=== PATIENT | male | born 1955 | race Caucasian/White ===

== ENCOUNTER 2022-06-17 21:24 | Emergency (ER) | payer MEDICARE, BC, SELFPAY ==
[2022-06-17 21:34] VITALS: BP 139/93; PULSE 70; RESP 18; TEMP 36.9; O2SAT 97; BMI 29.0
--- NOTE | 2022-06-17 22:05 | ED.GENADULT ---
HPI - General Adult General Chief complaint: Allergic Reaction Stated complaint: Bee stings, swelling Time Seen by Provider: 06/17/22 21:29 History of Present Illness HPI narrative: Pt is a 67 year old gentleman who was stung by 8 bees approximately 4 hours ago. Pt was mowing his lawn when he was attacked by a swarm of bees. Pt has no history of true beesting allery but does have a history of local swelling at the site of sting. Today he was stung on the back, abd, bilateral upper and lower extremities. He has swelling at the sites but no bleeding. No SOB no mucus membrane involvement. No chest pain or SOB. No diaphoresis. Pt took a bath prior to coming in and all remaining stingers were removed. Swelling has been stable for the last several hours. Pt feels well but is concerned about the sting sites. He is up to date on his vaccinations. Related Data Home Medications Medication Instructions Recorded Confirmed rosuvastatin 5 mg tablet mg 06/17/22 Allergies Allergy/AdvReac Type Severity Reaction Status Date / Time No Known Drug Allergies Allergy Verified 06/17/22 21:41 Review of Systems Status of ROS: Reports: 10 or more systems reviewed and unremarkable except as noted in History and below PFSH PFS Social History Smoking Status: Never smoker Do you use any of these nicotine containing products: None Second hand tobacco smoke exposure: No How often do you have a drink containing alcohol: 2-4 times a month AUDIT-C Alcohol total score: 2 Non-prescribed substance use: denies use Exam Narrative: Exam Narrative: EXAM GENERAL: Patient appears comfortable and well. No swelling of the mucus membranes and no difficulty breathing. EYES: No scleral icterus. ENT: Tympanic membranes and oropharynx normal. THYROID: no thyroid nodules or thyromegaly. LYMPH: No supraclavicular or cervical lymphadenopathy. SKIN: Sting sites as mentioned above on the thorax and extremities show fairly uniform swelling around the approximately 8 sting sites with each having approximately 5-6 cm of induration. No signs of secondary infection. EXT: No dependent lower extremity pedal edema. HEART: Regular rate and rhythm with no murmurs, rubs, or gallops. LUNGS: Clear to auscultation bilaterally with no crackles or wheezes. ABD: Soft, non tender, non distended. PSYCH: Good eye contact, speech is not pressured. Neuro: CN 2-12 intact no focal defects Const: Vital Signs, click to edit/add: Vital Signs - 24 hr 06/17/22 21:34 Temperature 98.4 F Pulse Rate [Left P ulse Oximeter] 70 Respiratory Rate 18 Blood Pressure [Ri ght Upper Arm] 139/93 H Pulse Oximetry 97 Oxygen Delivery Me thod Room Air Course Course Hospital Course: Pt seen and examined. No signs of systemic swelling or anaphalaxis. Sting sites were circled with marker. Tetanus shot verified. 40 mg of Solu-Medrol given. Reevaluation(s) Reevaluation #1: Pt still doing well. Time: 22:17 Vital Signs Vital signs: Initial Vital Signs Temperature 98.4 F 06/17/22 21:34 Temperature Source Temporal Artery Scan 06/17/22 21:34 Pulse Rate 70 06/17/22 21:34 Respiratory Rate 18 06/17/22 21:34 Blood Pressure 139/93 H 06/17/22 21:34 Blood Pressure Mean 108 06/17/22 21:34 Blood Pressure Position Supine 06/17/22 21:34 Pulse Oximetry 97 06/17/22 21:34 Oxygen Delivery Method 06/17/22 21:34 Vital Signs Temperature 98.4 F 06/17/22 21:34 Pulse Rate 70 06/17/22 21:34 Respiratory Rate 18 06/17/22 21:34 Blood Pressure 139/93 H 06/17/22 21:34 Pulse Oximetry 97 06/17/22 21:34 Oxygen Delivery Method 06/17/22 21:34 Temperature 98.4 F 06/17/22 21:34 Pulse Rate 70 06/17/22 21:34 Respiratory Rate 18 06/17/22 21:34 Blood Pressure 139/93 H 06/17/22 21:34 Pulse Oximetry 97 06/17/22 21:34 Oxygen Delivery Method 06/17/22 21:34 Medical Decision Making MDM Narrative Medical decision making narrative: Pt has exagerated local response with no signs of anaphalaxis. We did treat him with Solu Medrol and observed. Vital signs stable. Pt treated with outpt Prednisone for the next 5 days. Differential Diagnosis Differential Diagnosis: Anaphalaxis, Local Reaction, Cellulitis, Allergic Reaction, Burn Discharge Plan Discharge Clinical Impression: Accidental bee sting Patient Disposition: Home, Self-Care Condition: Stable Instructions: Insect Bite or Sting (ED) Additional Instructions: Prednisone for 5 days as directed Benadryl as directed Local sting care Follow up with your doctor as needed Contact General Surgery to ensure they do not need to delay hemorrhoid surgery Activity Level: Activity as Tolerated Discharge Diet: Regular Prescriptions: No Action rosuvastatin 5 mg tablet Label Comments: TAKE ONE-HALF TABLET BY MOUTH EVERY OTHER DAY Follow Up/Referrals: Rocky Ibanez MD [Primary Care Provider] - Stand Alone Forms: [facility] Info Instructions
[2022-06-17] MEDS: METHYLPREDNISOLONE SOD SUCC 40 MG/ML IM (22:30)
[2022-06-17 23:33] LABS: SARS PCR* Negative SARS-CoV-2 (Negative)
== END 2022-06-17 22:40 | disposition home or self-care (01) ==
PROVIDERS: Emergency Provider Internal Medicine; PCP Surgery
DX: T63.441A Toxic effect of venom of bees, accidental (unintentional), initial encounter (principal); Y92.017 Garden or yard in single-family (private) house as the place of occurrence of the external cause
CPT/HCPCS: 87635; 96372; 99283; 99284; J2920

== ENCOUNTER 2022-08-20 06:07 | Day surgery (SDC) | payer MEDICARE, BC, SELFPAY ==
[2022-08-20] VITALS (10 sets, daily range): BP systolic 114–138; BP diastolic 76–98; PULSE 55–85; RESP 12–16; TEMP 36.2–36.7; O2SAT 94–97; BMI 29.7
[2022-08-20] MEDS: LACTATED RINGERS 1000 ML 1,000 ML 100 ML IV ×2 (06:30→08:22)
[2022-08-20] MEDS: CEFAZOLIN 2 GM INJ IVP (07:35)
[2022-08-20] MEDS: BUPIVACAINE 0.5% 30 ML 10 ML INJECTION (07:54)
[2022-08-20] MEDS: BUPIVACAINE LIPOSOME 133 MG/10 ML INJ INFILTRATI (07:54)
--- NOTE | 2022-08-20 08:44 | PM.GSPRC ---
Operative Note Date of procedure: 08/20/22 Type of Procedure: 1. Hemorrhoidectomy , 2 quadrant 2. Excision of perianal skin tag Procedure Description: The patient was brought to the Operating Room and a formal timeout for patient safety was performed in accordance with hospital protocol, thereby correctly matching this patient with their diagnosis and intended procedure. They were placed in the supine position, general anesthesia was administered, and the patient was intubated by Anesthesia without difficulty. The patient was then transferred to the Operating Room table, placed in the prone jackknife position with appropriate bumps and padding. Care was taken to ensure the genitalia and breasts were properly positioned on the hip and chest rolls, respectively. The shoulders and arms were positioned with care to protect the brachial plexus. The buttocks were taped laterally. A sterile prep and drape was done in the usual fashion. External examination, digital rectal examination, and anoscopic examination were all done and revealed significantly redundant internal hemorrhoidal tissue in the right lateral and left lateral aspects of the anal canal with associated residual hemorrhoidal skin tags. A large skin tag was also present posterior midline. Based on this assessment, plans were made for a 2-quadrant closed hemorrhoidectomy, as well as removal of the posterior midline skin tag. Attention was initially directed to the largest area of involvement and then went to the progressively smaller areas and all were handled in the same fashion. An elliptical incision was made with a needle tip electrocautery from the anoderm up into the anal canal just above the dentate line. Careful dissection of the hemorrhoid complex was done in the plane between the internal anal sphincter and the submucosal vascular plexus up to just above the dentate line in each quadrant described above. Having established the proper plane, the hemorrhoidal tissue was then excised with the Ligasure device and sent to Pathology for analysis. Care was taken to preserve mucosa for a tension-free closure. The internal sphincter fibers were visualized at the base of the wound and were intact. The wound was closed in a running locked manner starting at the apex (proximal aspect of elliptical excision) with 4-0 chromic suture, coming out to the anoderm and then running back up in a simple fashion and tying down at the apex. Hemostasis was excellent. The patient tolerated procedure well. There were no apparent complications. Instrument, sponge, and needle counts were correct at the end of the case. ? Sterile dressings were then applied. ? The patient was then woken and transported to the recovery area in stable condition. ? The patient tolerated the procedure well. Findings: Redundant internal hemorrhoidal tissue and large perianal skin tag. Anesthesia: GETA Surgeon: Daylin Davey MD Estimated blood loss (mL): 10 Condition: stable Disposition: PACU
--- NOTE | 2022-08-20 08:47 | W.ANESCHARGE ---
Anesthesia Charges Start Date/Time Anesthesia Start Date: 08/20/22 Anesthesia Start Time: 07:28 Stop Date/Time Anesthesia Stop Date: 08/20/22 Anesthesia Stop Time: 08:45 Summary Emergency: No
== END 2022-08-20 10:06 | disposition home or self-care (01) ==
PROVIDERS: PCP Surgery; Visit Provider Surgery
PROC: (CPT 46260; principal; 2022-08-20 07:30)
DX: K64.8 Other hemorrhoids (principal); K64.4 Residual hemorrhoidal skin tags
CPT/HCPCS: 46260; 00902; 88304; C9290; J0330; J0690; J2250; J2405; J2704; J3010; J3490; J7120

== ENCOUNTER 2024-03-26 07:39 | Emergency (ER) | payer MEDICARE, BC, SELFPAY ==
[2024-03-26 07:51] VITALS: BP 132/80; PULSE 63; RESP 18; TEMP 36.4; O2SAT 97; BMI 28.2
--- NOTE | 2024-03-26 08:11 | ED_ITS ---
HPI - Extremity Injury (Lower) General Time Seen by Provider: 08:11 Date Seen: 03/26/24 Chief Complaint: Extremity Pain/Injury, Lower Stated Complaint: RT knee injury Time Seen by Provider: 03/26/24 08:09 Source: patient, RN notes reviewed and old records reviewed Mode of arrival: ambulatory Limitations: no limitations History of Present Illness HPI Narrative: 68-year-old male who comes in today with 3 days of knee pain after twisting it three days ago. Gradual onset of pain now to the point he can not walk. He was supposed to have a lumbar fusion today but that was canceled due to inability to ambulate due to his knee pain. He has not taken anything for this. Related Data Home Medications ?Medication ?Instructions ?Recorded ?Confirmed tamsulosin 0.4 mg capsule (Flomax) 0.4 mg PO DAILY 08/19/22 08/19/22 Previous Rx's ?Medication ?Instructions ?Recorded oxycodone 5 mg tablet 5 mg PO Q6H PRN pain #30 tabs 08/20/22 sennosides 8.6 mg capsule (senna) 8.6 mg PO DAILY PRN constipation 08/20/22 #90 caps diclofenac sodium 3 % topical gel 1 applic topical BID 60 days #100 03/26/24 grams oxycodone 5 mg capsule 5 mg PO Q6H PRN pain #10 caps 03/26/24 Allergies Allergy/AdvReac Type Severity Reaction Status Date / Time atorvastatin Allergy Intermediate Chest Pain Verified 08/20/22 06:31 PFSH PFSH Social History Smoking Status: Never smoker Do you use any of these nicotine containing products: None Second hand tobacco smoke exposure: No How often do you have a drink containing alcohol: 2-4 times a month AUDIT-C Alcohol total score: 2 Non-prescribed substance use: denies use service: No Exam Narrative: Exam Narrative: General: well nourished , NAD Head: Atraumatic and normocephalic ENT: External ears and external nose are normal Eyes: Conjunctiva clear, pupils are equal reactive, external ocular motions are intact Neck: Full spontaneous range of motion of the neck Lungs: No respiratory distress Musculoskeletal: Redness and swelling over the medial right knee. No joint effusion, pain with valgus stress with no definite laxity although patient guards Neurologic: No gross focal neurologic deficits Skin: No rashes Psych: Mood and affect are appropriate Const: Vital Signs, click to edit/add: Vital Signs - 24 hr 03/26/24 07:51 Temperature 97.6 F Pulse Rate [Pulse Oximeter] 63 Respiratory Rate 18 Blood Pressure [Ri ght Upper Arm] 132/80 Pulse Oximetry 97 Oxygen Delivery Me thod Room Air Course Course ED Course: Patient seen and examined, presents today with medial pain of the right knee after with some a couple days ago. On exam marked tenderness along the course of the MCL and pain with valgus stress. Likely MCL strain, unable to test for total disruption due to guarding at this time. X-ray ordered to evaluate for bony abnormality, plan for immobilizer and crutches. Patient is given oxycodone in the emergency department. Reevaluation(s) Time of Reevaluation #1: 08:39 Reevaluation #1: X-ray ordered in the bili interpreted by me does appear to show a small avulsion of the medial tibia. Will discuss with Orthopedic surgery but likely no change in plan at this time Time of Reevaluation #2: 08:50 Reevaluation #2: Care discussed with [facility], agrees with plan for crutches and follow-up with orthopedics Vital Signs Vital signs: Initial Vital Signs Temperature 97.6 F 03/26/24 07:51 Temperature Source Temporal Artery Scan 03/26/24 07:51 Pulse Rate 63 03/26/24 07:51 Pulse Rhythm Regular 03/26/24 07:51 Respiratory Rate 18 03/26/24 07:51 Blood Pressure 132/80 03/26/24 07:51 Blood Pressure Mean 97 03/26/24 07:51 Blood Pressure Position Supine 03/26/24 07:51 Pulse Oximetry 97 03/26/24 07:51 Oxygen Delivery Method Room Air 03/26/24 07:51 Vital Signs Temperature 97.6 F 03/26/24 07:51 Pulse Rate 63 03/26/24 07:51 Respiratory Rate 18 03/26/24 07:51 Blood Pressure 132/80 03/26/24 07:51 Pulse Oximetry 97 03/26/24 07:51 Oxygen Delivery Method Room Air 03/26/24 07:51 Temperature 97.6 F 03/26/24 07:51 Pulse Rate 63 03/26/24 07:51 Respiratory Rate 18 03/26/24 07:51 Blood Pressure 132/80 03/26/24 07:51 Pulse Oximetry 97 03/26/24 07:51 Oxygen Delivery Method Room Air 03/26/24 07:51 Medications Administered Medications: Discontinued Medications Generic Name Dose Route Start Last Admin Trade Name Freq PRN Reason Stop Dose Admin Oxycodone HCl 5 mg 03/26/24 08:19 03/26/24 08:28 Oxycodone 5 Mg Tablet PO 03/26/24 08:20 5 mg ONCE ONE Administration Discharge Plan Discharge Clinical Impression: MCL sprain of right knee, Closed avulsion fracture of condyle of left femur Patient Disposition: Home, Self-Care Condition: Stable Instructions: Knee Sprain (ED) Additional Instructions: Immobilizer and crutches for comfort Tylenol and ibuprofen as needed for pain, oxycodone for more severe pain. Apply Voltaren gel as directed Follow-up with orthopedics next week for further evaluation treatment [phone] Activity Level: Weight Bearing as Tolerated Discharge Diet: Regular Prescriptions: New diclofenac sodium 3 % gel 1 applic topical BID 60 Days Qty: 100 0RF oxycodone 5 mg capsule 5 mg PO Q6H PRN (Reason: pain) Qty: 10 0RF No Action tamsulosin [Flomax] 0.4 mg capsule 0.4 mg PO DAILY oxycodone 5 mg tablet 5 mg PO Q6H PRN (Reason: pain) Qty: 30 0RF Rx Instructions: Take 1-2 tabs of pain medicine as needed for pain control. senna 8.6 mg capsule 8.6 mg PO DAILY PRN (Reason: constipation) Qty: 90 0RF Rx Instructions: Take stool softeners while on narcotic pain medication and to keep your stools soft for the first 2 weeks following the procedure. Follow Up/Referrals: Rocky Ibanez MD [Primary Care Provider] - Stand Alone Forms: [employer] Info Instructions
--- NOTE | 2024-03-26 08:19 | CRLHL7_ITS ---
For Patients: As a result of the Century Cures Act, medical imaging exams and procedure reports are released immediately into your electronic medical record. You may view this report before your referring provider. If you have questions, please contact your health care provider. Indication: Fall. Technique: Three view(s) of the right knee. Comparison: None available. Findings: Alignment is anatomic and joint spaces are maintained. There small patellar marginal osteophytes as well as a small superior patellar enthesophyte. There is a radiopaque density adjacent to the medial femoral epicondyle measuring approximally 1.1 cm, which may represent hydroxyapatite deposition within the medial collateral ligament versus heterotopic ossification related to prior trauma or less likely a small avulsion fragment. Small knee joint effusion. Mild prepatellar soft tissue swelling. Impression : 1. No definite fracture. 2. Calcification adjacent to the medial femoral epicondyle is somewhat nonspecific and may represent hydroxyapatite within the medial collateral ligament, or sequela of proximal MCL injury. Recommend correlation with location of pain. 3. Mild patellofemoral osteoarthritis. Dictated by Nilsa James MD @ 03/26/2024 8:48:41 AM (Electronically Signed)
[2024-03-26] MEDS: OXYCODONE 5 MG TABLET PO (08:28)
== END 2024-03-26 09:09 | disposition home or self-care (01) ==
PROVIDERS: Emergency Provider Family Medicine; PCP Surgery
DX: S83.411A Sprain of medial collateral ligament of right knee, initial encounter (principal); M84.452A Pathological fracture, left femur, initial encounter for fracture
CPT/HCPCS: 73562; 99283; 99284; A9270